=== PATIENT | male | born 1975 | race African-American/Black ===

== ENCOUNTER 2018-10-11 20:27 | Emergency (ER) | payer OTHER ==
[~2018-10-11] VITALS: Ht 180.3 cm; Wt 87.5 kg
[~2018-10-11 20:27] MED LIST: BACITUD TOP; IBUP-1542 PO
[2018-10-11 20:33] VITALS: BP 140/80; PULSE 73; RESP 16; Ht 180.3 cm; Wt 87.5 kg
[2018-10-11] MEDS ORDERED: DIPHTH/TET/ACEL PERTUSS (ADULT) 0.5 ML VIAL IM* ONE (22:00)
== END 2018-10-11 23:00 | disposition home or self-care (01) ==
LOC: FTE 20:27
DX: S40.811A Abrasion of right upper arm, initial encounter (principal); S00.03XA Contusion of scalp, initial encounter; X99.0XXA Assault by sharp glass, initial encounter; Z23 Encounter for immunization
CPT/HCPCS: 90471; 90715; Z7502